=== PATIENT | male | born 2000 | race Two or more races ===

== ENCOUNTER 2024-08-31 10:38 | Emergency (ER) | payer MEDICAID ==
[~2024-08-31] VITALS: Ht 175.3 cm; Wt 104.5 kg
[2024-08-31 10:54] VITALS: TEMP 98.5
[2024-08-31] MEDS: LIDOCAINE 1% 10 ML VIAL ID ONE (11:20)
[2024-08-31 12:15] VITALS: BP 144/84; PULSE 69; RESP 17; O2SAT 98
== END 2024-08-31 12:37 | disposition home or self-care (01) ==
LOC: EMS 10:38
DX: S61.211A Laceration without foreign body of left index finger without damage to nail, initial encounter (principal); S61.215A Laceration without foreign body of left ring finger without damage to nail, initial encounter; F12.90 Cannabis use, unspecified, uncomplicated; I10 Essential (primary) hypertension; W01.0XXA Fall on same level from slipping, tripping and stumbling without subsequent striking against object, initial encounter; Y93.89 Activity, other specified; Y92.89 Other specified places as the place of occurrence of the external cause; Y99.8 Other external cause status
CPT/HCPCS: 99282; 12001; J3490